=== PATIENT | female | born 1980 | race Caucasian/White ===

== ENCOUNTER 2023-11-03 13:05 | Emergency (ER) | payer SELFPAY ==
[~2023-11-03] VITALS: Ht 154.9 cm; Wt 68.0 kg
[2023-11-03 13:08] VITALS: BP 123/79; PULSE 88; RESP 15; TEMP 98.8; O2SAT 95
[2023-11-03] MEDS: KETOROLAC 30 MG/ML VIAL IM ONE (13:50)
[2023-11-03] MEDS: DEXAMETHASONE 10 MG/ML VIAL IM ONE (13:50)
[2023-11-03] MEDS ORDERED: SUD30 PO (14:11)
[2023-11-03] MEDS ORDERED: CETI10SG1 PO (14:11)
[2023-11-03] MEDS ORDERED: NAPR-1704 PO (14:11)
[2023-11-03 14:20] VITALS: BP 122/82; PULSE 78; RESP 16; TEMP 98.8; O2SAT 99
[2023-11-03 15:10] LABS: FLU A ANTIGEN negative (NEGATIVE); FLU B ANTIGEN negative (NEGATIVE)
== END 2023-11-03 14:20 | disposition home or self-care (01) ==
LOC: MED 13:05
DX: H66.93 Otitis media, unspecified, bilateral (principal); Z20.822 Contact with and (suspected) exposure to COVID-19; R51.9 Headache, unspecified; Z79.899 Other long term (current) drug therapy
CPT/HCPCS: 87426; 87804; 96372; 99284; J1100; J1885; Q0163